=== PATIENT | female | born 1950 | race Caucasian/White ===

== ENCOUNTER → 2020-09-11 | Outpatient (CLI) | payer MEDICARE, OTHER ==
--- NOTE | 2020-09-11 16:55 | MR ---
EXAMINATION TYPE: MR lumbar spine wo con DATE OF EXAM: 09/11/2020 COMPARISON: None HISTORY: Lumbago, Low back pain into rt side TECHNIQUE: Multiplanar, multisequence images of the lumbar spine were acquired. L1-L2: Normal disc appearance without desiccation. No herniation, protrusion or disc bulging. No ca nal stenosis is present. Foramina are patent bilaterally. L2-L3: Mild posterior disc bulge effaces the anterior thecal sac. There is mild facet arthropathy. No significant spinal stenosis or foraminal encroachment. L3-L4: Posterior disc bulge causes mild anterior mass effect on the thecal sac. There is facet arthro josefa with hypertrophy ligamentum flavum. No significant spinal stenosis or foraminal encroachment. L4-L5: There is a trefoil appearance of the thecal sac due to the hypertrophic changes of the facets, posterior disc bulge causes anterior mass effect on the thecal sac. Circumferential extension of dis c material encroaches minimally on the inferior aspect of the foramina. L5-S1: There is facet arthropathy change with hypertrophy ligamentum flavum. Posterior disc bulge eff aces the anterior thecal sac and possibly contact the proximal S1 nerve roots. Circumference extensio n endplate disc complex results in some foraminal encroachment bilaterally. Lumbar segments are intact. No paraspinal masses are identified. Conus medullaris has a normal appe arance. Mild anterolisthesis grade 1 L4-5, retrolisthesis grade 1 L5-S1. There is loss of disc height signal at intervertebral levels. Multilevel spondylosis with endplate discogenic marrow signal bourne es present. IMPRESSION: Degenerative disc disease and facet arthropathy. Foraminal encroachment and findings at L4-5 as descr ibed.
== END | disposition home or self-care (01) ==
LOC: RADMRIMAIN 07:29
PROVIDERS: ATTEND Psychiatry & Neurology Neurology
DX: M51.36 Other intervertebral disc degeneration, lumbar region (principal); M43.17 Spondylolisthesis, lumbosacral region; M47.816 Spondylosis without myelopathy or radiculopathy, lumbar region; M99.73 Connective tissue and disc stenosis of intervertebral foramina of lumbar region
CPT/HCPCS: 72148

== ENCOUNTER 2021-04-28 11:35 | Day surgery (SDC) | payer MEDICARE ==
[2021-04-27 13:40] VITALS: BMI 32.6
[2021-04-28 12:00] VITALS: RESP 16; TEMP 97.8
[2021-04-28 12:08] LABS: Glucose,Whole Blood 130 mg/dL (75-99)
[2021-04-28] MEDS ORDERED: LACTATED RINGERS 1,000 ML IV ONE (12:08)
[2021-04-28] MEDS ORDERED: MIDAZOLAM 2 MG/2 ML VIAL ONE (12:36)
[2021-04-28] MEDS ORDERED: fentaNYL (PF) 50 MCG/ML 2 ML AMP ONE (12:36)
[2021-04-28] MEDS ORDERED: methylPREDNISolone ACETATE 40 MG/ML 1 ML VIAL ONE (12:36)
[2021-04-28] MEDS ORDERED: IOPAMIDOL M200 10 ML VIAL ONE (12:36)
[2021-04-28] MEDS ORDERED: LACTATED RINGERS 1,000 ML IV SCH (12:45)
--- NOTE | 2021-04-28 13:00 | P.PCN ---
Date of Procedure: 04/28/21 Description of Procedure: Procedure: 1. L4-L5 Epidural steroid injection under fluoroscopic guidance # 03/02 , 2. Lumbar epidurogram PREOPERATIVE DIAGNOSIS: Lumbar degenerative disc disease, and Lumbar radiculopathy. POSTOPERATIVE DIAGNOSIS: Lumbar degenerative disc disease, and Lumbar radiculopathy. SURGEON: Enriqueta Laguna ANESTHESIA: Local with 1% lidocaine, and IV sedation : Versed 1 mg, and fentanyl 50 g EBL: None. Specimen removed: None Fluoroscopic image: saved to electronic medical records PROCEDURE INDICATION: The patient had history of Lumbar degenerative disc disease and Lumbar radiculopathy. Failed to conservative therapy. Presented for epidural steroid injection. PROCEDURE DESCRIPTION: The patient was seen and identified in the preoperative area. Risks, benefits, complications, and alternatives were discussed with the patient. The patient agreed to proceed with the procedure and signed the consent. IV was started, and vital signs were stable. Patient was taken to the procedure area, and time out was completed. The patient was placed in the prone position on procedure table and a pillow was placed under the abdomen to reduce lumbar lordosis. The lumbosacral area was prepped and draped in the usual sterile fashion. Critical pause was taken. Vital signs were closely monitored during the procedure. Using anterior-posterior fluoroscopy, the L4-L5 interlaminar space was identified, and skin and deeper tissues were localized with 1% lidocaine. Using anterior-posterior fluoroscopy, lateral fluoroscopy, and [id number] technique, a18 gauge 3.5 Tuohy epidural needle entered the epidural space. After negative aspiration of CSF and blood with no paresthesias, 2 ml of [id number] contrast dye was injected and an excellent epidurogram was seen. Again after negative aspiration of CSF and blood with no paresthesias, 8 mL of block solut ion was injected into the epidural space. Block solution contained 40 mg of Depo-Medrol, and 7 mL of preservative-free normal saline. Needle was withdrawn intact, skin was cleansed, and bandages were applied. COMPLICATIONS: None. DISPOSITION / PLANS: The patient was placed in a supine position and transferred to the recovery area in a stable condition for observation. Patient was discharged from the recovery room after meeting discharge criteria. Home discharge instructions given to the patient by the staff. The patient was reexamined prior to discharge. The patient will schedule a follow up in the clinic in 4 weeks.
[2021-04-28] MEDS ORDERED: IV FLUID CONTINUATION 600 ML IV ONE (13:04)
--- NOTE | 2021-04-28 13:13 | FL ---
EXAMINATION TYPE: FL guided pain mgmt statistic DATE OF EXAM: 04/28/2021 CLINICAL HISTORY: Low back pain. TECHNIQUE: Fluoroscopy. COMPARISON: None. FINDINGS: Fluoroscopic guidance was provided during pain relief procedure performed by Dr. Laguna . A total of 34 seconds of fluoroscopic time was utilized during the procedure and two spot images ar e acquired. Images acquired shows needle localization at L4-L5 level from posterior approach. IMPRESSION: As Above.
[2021-04-28 13:47] VITALS: BP 123/69; PULSE 69
== END 2021-04-28 13:55 | disposition home or self-care (01) ==
LOC: ORPAIN 11:35
DX: M51.36 Other intervertebral disc degeneration, lumbar region (principal); M54.16 Radiculopathy, lumbar region
CPT/HCPCS: 62323; J2250; J1030; J3010; Q9966

== ENCOUNTER → 2021-05-14 | Outpatient (CLI) | payer MEDICARE ==
[2021-05-14 12:48] VITALS: BP 133/81; PULSE 76; RESP 18; TEMP 98.4
--- NOTE | 2021-05-14 13:03 | P.CON ---
Consult Note - . Consult date: 05/14/21 Assessment/Plan:: HISTORY OF PRESENT ILLNESS: 71 yr old female as a referral from Dr. Van presents today with lower back pain secondary to anterolisthesis, retrolisthesis, spondylosis, DDD and facet arthropathy for evaluation status post LESI L4-L5 #1. Patient states she expires 100% pain relief status post procedure. She admits she is able to climb steps, overhead reach when doing dishes and carrying laundry baskets with more ease. Pain level is currently 0 out of 10 in intensity and denies any radiation of pain, tingling, or numbness. Patient admits to having LESI L4-L5 1 prior time in 2003. Pain is alleviated with medications, injections, physical therapy which she completed 02/17, home stretching regimen, use of a reclining massage chair and rest. PMH: HTN, DM II PSH: L Hip Replacement, R Shoulder Surgery, Hysterectomy, Cholycystectomy, C- section x 2. SH: Negative x 3. FH: HTN All: NKDA Meds: See list REVIEW OF ORGAN SYSTEMS: CONSTITUTIONAL: No fevers or chills. No recent weight loss. HEENT: No visual acuity loss, eye pain, difficulties with hearing. No nosebleeds. No difficulty swallowing. RESPIRATORY: Denies any troubles with breathing or dyspnea on exertion. CARDIOVASCULAR: Denies any chest pain, palpitations, or recent heart attacks. GASTROINTESTINAL: Denies fatty food intolerance. Has change in bowel habits and gas bloat. GENITOURINARY: Denies any blood in urine. Has increased urinary frequency. NEUROLOGICAL: + numbness and tingling along the distal extremities. No seizure disorders or headaches. MUSCULOSKELETAL: + back pain SKIN: No skin cancer. No rash. PSYCHIATRIC: Denies current depression or suicidal thoughts. ENDOCRINE: Denies current thyroid disorders. Denies any blood sugar glucose intolerance. HEME/LYMPHATIC: Denies any lumps and bumps around the neck. History of deep venous thrombosis. ALLERGY/IMMUNOLOGY: No immunoglobulin therapy. No immune deficiencies. BREAST: Denies current breast lumps, pain or nipple discharge. Physical Examinations : Constitutional : Cooperative , not in acute distress . HEENT: Neck supple. No Lymphadenopathy. Normal thyroid size . Eyes no ptosis , no icterus, no photophobia . Hearing intact. Normal oropharynx. No Thrush. Respiratory : Chest clear to auscultations bilaterally. No wheezing. No rhonchi. Cardiovascular : Regular rate and rhythm , S1 / S2. No S3 . No S4. Gastrointestinal : Abdomen soft. No tenderness. Bowel sounds x 4. No organomegaly . Genitourinary : Deferred. Neurologic : Cranial nerve II to XII intact. No focal neurological deficits. Psychiatric : alert & oriented x 3. Matching mood & appropriate affect. Judgment & insight intact. Lymphatic No Lymphadenopathy. Musculoskeletal : Cervical Spine Motor strength in the deltoid and biceps: Normal right side. Normal Left side Motor strength biceps and the wrist extensors: Normal right side . Normal left side Motor strength in the triceps muscle: Normal right side. Normal left side Deep tendon reflexes: Normal at the biceps. Normal at Brachioradialis. Normal at triceps Cervical facet loading test: positive bilaterally Spurling test: positive bilaterally Neck distraction test: positive bilaterally Dante sign: positive bilaterally Lumbar spine Motor strength lower extremities ,thigh and legs 5/5 Right side , 5/5 Left side Deep tendon reflexes : Normal Knee Jerk. Normal Ankle Jerk Vertebral body tenderness over L5 with deep palpation Lumbar facet Loading Test: positive Right / positive Left Range of motion of the lumbar spine Flexion 30 degrees, extension 10 degrees Straight Leg Raise test: Left/ Right p ositive at degree Waqas test: positive right / positive left. Severe tenderness over the Sacroiliac joint on the Right / Left sides Gaenslen test: positive bilaterally Seated flexion test: positive bilaterally. Imaging: MANFRED of the Lumbar spine without contrast from 09/11/20 reviewed. Assessment/ Plan : Lumbar DDD, spondylosis, facet arthropathy. Pt admits to sufficient and substantial pain relief till this day s/p procedure. Pt may return to our clinic on an as-needed basis. All questions answered. I have spent greater than 50 minutes on patient care today. Dr Kelley was available by phone for the evaluation of this patient. The time was used to review the medical records including relevant urine studies and Prescription history (MAPs), review of the available imaging, evaluation and examination of the patient, coordination of care with the medical staff and if applicable referring physicians, as well as creation of the medical record PQRS Measure Charge Sheet Mode of Arrival: Ambulatory PQRS Narrative: Blood Pressure 133/81 Scale Used Numeric (1 - 10) Hx Alcohol Use (MH) No Home Medications: Ambulatory Orders Atorvastatin [Lipitor] 80 mg PO DAILY 04/27/21 Candesartan/Hydrochlorothiazid [Candesartan/Hydrochlorothiazid 32-12.5 mg] 1 each PO DAILY 04/27/21 Esomeprazole Magnesium [NexIUM] 40 mg PO DAILY 04/27/21 Ibuprofen [Motrin] 800 mg PO BID PRN 04/27/21 Meloxicam [Mobic] 15 mg PO DAILY 04/27/21 Sertraline [Zoloft] 100 mg PO BID 04/27/21 amLODIPine BESYLATE 10 mg PO DAILY 04/27/21 buPROPion XL [Wellbutrin XL] 300 mg PO DAILY 04/27/21 sitaGLIPtin PHOS/metFORMIN HCL [Janumet 50-500 mg Tablet] 1 each PO BID 04/27/21
== END ==
LOC: PNWHC3 12:16
PROVIDERS: ATTEND Specialist
DX: M51.36 Other intervertebral disc degeneration, lumbar region (principal); M47.816 Spondylosis without myelopathy or radiculopathy, lumbar region; I10 Essential (primary) hypertension; E11.9 Type 2 diabetes mellitus without complications; Z79.84 Long term (current) use of oral hypoglycemic drugs; Z79.899 Other long term (current) drug therapy
CPT/HCPCS: 99211

== ENCOUNTER → 2021-07-22 | Outpatient (CLI) | payer MEDICARE ==
--- NOTE | 2021-07-22 09:24 | P.PN ---
Subjective Progress Note Date: 07/22/21 Principal diagnosis: A 71 yr old female with a history of severe and chronic low back pain secondary to lumbar degenerative disc diseases and lumbar spondylosis with facet arthropathy presents today for evaluation s/p LESI L4-L5 #1. She states she experienced 100% pain relief for 2 months status post procedure. Pain level is currently at 8 out of 10 in intensity, constant, achy in the lower aspects of her lumbar spine with occasional sharp pain with movement, twisting, bending and lifting. Pain is alleviated with medications (Motrin 800 mg, Tylenol OTC), injections, repositioning, physical therapy for 10 weeks in January 2021 and rest. Interventional pain procedures completed include LESI L4-L5 x1 Patient is currently on Motrin 800 mg, Tylenol OTC. Patient denies any side effects of the medication(s), denies excessive drowsiness or sleepiness, denies suicidal ideation and reports that the current pain medication is helping to control the pain and improve activities of daily living. Patient denies any motor or sensory deficits. Patient denies any fever or night sweats, denies any change in the bowel movements or urination. Physical Examination: -Constitutional: Cooperative. Not in acute distress . -HEENT: Neck is supple. No lymphadenopathy. No thyromegaly. Normal thyroid size. Eyes: No ptosis , no icterus, no photophobia. ENT: No auditory deficits. Normal oropharynx. No Thrush. - Respiratory: Chest clear to auscultations bilaterally. No wheezing. No rhonchi. - Cardiovascular: Regular rate and rhythm. S1 / S2 , no S3 , no S4. - Gastrointestinal: Abdomen soft no tenderness. Bowel sounds positive in all four quadrants. No organomegaly. - Genitourinary: Deferred. - Neurologic: Cranial nerve II to XII intact. No focal neurological deficits. - Psychatric: Alert & oriented x 3. Matching mood & appropriate affect. Judgment and insight intact. - Lymphatic: No Lymphadenopathy. - Musculoskeletal: Cervical spine: Muscle bulk/ tone/ strength in the bilateral upper extremities normal Vertebral body tenderness to palpation over Facet loading test positive Thoracic spine Muscle bulk / tone/ strength in the bilateral paraspinal muscles normal Vertebral body tender to palpation over Facet loading test positive Lumbar spine: Motor bulk/ tone/ strength lower extremities , thigh and legs : 5/5 Deep tendon reflexes : Normal Knee Jerk. Normal Ankle Jerk . Vertebral body tenderness to palpation over L4 Lumbar Facet Loading Test positive Straight Leg Raise: positive at 30 degrees right side< left side Gaenslen's Test positive Sacral spine : Severe tenderness over the Sacroiliac joint: right side / left side Range of motion: Flexion of the lumbar spine <60 degrees Range of motion: Extension of the lumbar spine <20 degrees Gaenslen's Test positive Jero's Test positive Waqas test: positive right side / left side Thigh Thrust Test Sacral Thrust Test Assessment and plan: Chronic low back pain secondary to lumbar degenerative disc disease , lumbar spondylosis with facet arthropathy without myelopathy Recommendation of LESI L4-L5 #2. Risks, benefits of procedure discussed and pt verbalized understanding. Denies anticoagulant use or medical history of diabetes. Denies anticoagulant use. Admits to medical history of diabetes. Protocol for discontinuation/continuation of medications enrrique procedure discussed. All patient questions answered MAPS reviewed and it was appropriate. I have spent 31 minutes on patient care today. Dr Kelley was available by phone for the evaluation of this patient. The time was used to review the medical records including relevant urine studies and Prescription history (MAPs), review of the available imaging, evaluation and examination of the patient, coordination of care with the medical staff and if applicable referring physicians, as well as creation of the medical record PQRS Measure Charge Sheet PQRS Narrative: Hx Alcohol Use (MH) No Home Medications: Ambulatory Orders Atorvastatin [Lipitor] 80 mg PO DAILY 04/27/21 Candesartan/Hydrochlorothiazid [Candesartan/Hydrochlorothiazid 32-12.5 mg] 1 each PO DAILY 04/27/21 Esomeprazole Magnesium [NexIUM] 40 mg PO DAILY 04/27/21 Ibuprofen [Motrin] 800 mg PO BID PRN 04/27/21 Meloxicam [Mobic] 15 mg PO DAILY 04/27/21 Sertraline [Zoloft] 100 mg PO BID 04/27/21 amLODIPine BESYLATE 10 mg PO DAILY 04/27/21 buPROPion XL [Wellbutrin XL] 300 mg PO DAILY 04/27/21 sitaGLIPtin PHOS/metFORMIN HCL [Janumet 50-500 mg Tablet] 1 each PO BID 04/27/21
[2021-07-22 09:31] VITALS: BP 140/65; PULSE 88; RESP 16
== END ==
LOC: PNWHC3 09:04
PROVIDERS: ATTEND Specialist
DX: M51.36 Other intervertebral disc degeneration, lumbar region (principal); M47.816 Spondylosis without myelopathy or radiculopathy, lumbar region; G89.29 Other chronic pain; E11.9 Type 2 diabetes mellitus without complications; Z79.84 Long term (current) use of oral hypoglycemic drugs
CPT/HCPCS: 99211

== ENCOUNTER → 2021-09-01 | Day surgery (SDC) | payer MEDICARE ==
[2021-08-27 11:58] VITALS: BMI 32.6
[~2021-09-01] MED LIST: IOPAMIDOL M200 10 ML VIAL ONE; IV FLUID CONTINUATION 750 ML IV ONE; LACTATED RINGERS 1,000 ML IV SCH; LIDOCAINE 2% INJ 20 MG/ML (2 ML VIAL) ONE; MIDAZOLAM 2 MG/2 ML VIAL ONE; ROPIVACAINE 5MG/ML 20ML VIAL ONE; fentaNYL (PF) 50 MCG/ML 2 ML AMP ONE
[2021-09-01 08:44] VITALS: TEMP 97.3
[2021-09-01 08:52] LABS: Glucose,Whole Blood 113 mg/dL (70-110)
--- NOTE | 2021-09-01 09:15 | P.PCN ---
Date of Procedure: 09/01/21 Surgeon: Saw Husain Pathology: none sent Condition: stable Disposition: PACU Description of Procedure: REOPERATIVE DIAGNOSIS: 1-Lumbar radiculopathy 2- Lumber Degenerative Disc Diseases. POSTOPERATIVE DIAGNOSIS: 1-Lumbar radiculopathy. 2-Lumbar Degenerative Disc Diseases PROCEDURE 1. Lumbar epidural steroid injection under fluoroscopic guidance at the L5-S1 level in the right paramedian approach. 2. Lumbar epidurogram. ANESTHESIA: Local with 1% lidocaine; and IV moderate conscious sedation with Versed and fentanyl EBL: Minimal PROCEDURE INDICATION: The patient with low back pain and radiculitis symptoms unresponsive to conservative treatment. Fluoroscopy was used to optimize visualization of the needle placement and to maximize safety. PROCEDURE DESCRIPTION / TECHNIQUE: The patient was seen and identified in the preoperative area. Risks, benefits, complications including but not limited to infections ,bleeding ,allergic reaction to the medications ,nerve damage and not complete pain relief , and alternatives were discussed with the patient. The patient agreed to proceed with the procedure and signed the consent. IV was started, and vital signs were stable. Patient was taken to the OR and time out was completed. The patient was placed in the prone position on procedure table and a pillow was placed under the abdomen to reduce lumbar lordosis. The lumbosacral area was prepped and draped in the usual sterile fashion with ChloraPrep.Patient was closely monitored during the procedure. Conscious sedation was used during the procedure to decrease patients anxiety. Vital signs were monitered during the entire procedure. Using anterior-posterior fluoroscopy, the L5-S1 interlaminar space was identified and the skin over this site was marked and then infiltrated with 1% lidocaine subcutaneously. Subsequently, a 18-gauge 5 inch Tuohy epidural needle was inserted and advanced toward the epidural space using the Loss of resistance to air technique and guided by AP and lateral fluoroscopy. The epidural space was found at about 9 cm from skin. The correct needle position in the epidural space was verified with the injection of 1 mL of the water soluble contrast dye Omnipaque 180 contrast and observing an excellent epidurogram with the epidural spread of the dye, after negative aspiration for blood and CSF and in the absence of paresthesias. Again after negative aspiration, a 8 ml mixture containing 40 mg of Kenalog and 5 ml of preservative free Normal Saline, and 2 ml of preservative free Ropivacaine 0.5% solution was injected and a washout of epidurogram was seen. Needle was withdrawn intact, skin was cleansed, and bandages were applied. patient tolerated procedure well and was transferred to PACU in stable condition.A copy of the needle placement picture was saved to the fluoroscopy machine. COMPLICATIONS: None
[2021-09-01 09:33] VITALS: RESP 16
[2021-09-01 09:42] VITALS: BP 145/75; PULSE 68
--- NOTE | 2021-09-01 10:17 | FL ---
Fluoroscopy HISTORY: Pain 14 seconds fluoroscopy time supplied to the referring clinician. 1 intraoperative C-arm images docum ent the procedure. See dictated report from anesthesia.
== END ==
LOC: ORPAIN 08:27
PROVIDERS: ATTEND Anesthesiology
DX: M51.16 Intervertebral disc disorders with radiculopathy, lumbar region (principal)
CPT/HCPCS: 62323; J2250; J3010; Q9966; J2795; J2001; 99152

== ENCOUNTER → 2021-09-17 | Outpatient (CLI) | payer MEDICARE ==
[2021-09-17 11:22] VITALS: BP 123/78; PULSE 82; RESP 18
--- NOTE | 2021-09-17 11:22 | P.PAINPG ---
PQRS Measure Charge Sheet Comment: A 71 yr old female with a history of severe and chronic low back pain secondary to lumbar degenerative disc diseases and lumbar spondylosis with facet arthropathy presents today for evaluation status post LESI L5-S1 #1. She states she experienced 100% pain relief x 3 weeks status post procedure. Pain level is currently at 0/10 intensity, but provoked as high as 2/10 by twisting or lifting. Pain is alleviated with medications (Tylenol, Motrin), topicals, ice, heat, stretching and rest. Interventional pain procedures completed include LESI L5-S1 x 1 Patient is currently on Tylenol, Motrin prn Patient denies any side effects of the medication(s), denies excessive drowsiness or sleepiness, denies suicidal ideation and reports that the current pain medication is helping to control the pain and improve activities of daily living. Patient denies any motor or sensory deficits. Patient denies any fever or night sweats, denies any change in the bowel movements or urination. Physical Examination: -Constitutional: Cooperative. Not in acute distress . - Neurologic: Cranial nerve II to XII intact. No focal neurological deficits. - Psychatric: Alert & oriented x 3. Matching mood & appropriate affect. Judgment and insight intact. - Musculoskeletal: Cervical spine: Muscle bulk/ tone/ strength in the bilateral upper extremities normal Vertebral body tenderness to palpation over Spurling test positive Distraction test positive Facet loading test positive Thoracic spine Muscle bulk / tone/ strength in the bilateral paraspinal muscles normal Vertebral body tender to palpation over Facet loading test positive Lumbar spine: Motor bulk/ tone/ strength lower extremities , thigh and legs : 5/5 Deep tendon reflexes : Normal Knee Jerk. Normal Ankle Jerk . Vertebral body tenderness to palpation over L5 w deep palpation Lumbar Facet Loading Test positive Straight Leg Raise: positive at 30 degrees right side/ left side Gaenslen's Test positive Sacral spine : Severe tenderness over the Sacroiliac joint: right side / left side Range of motion: Flexion of the lumbar spine <60 degrees Range of motion: Extension of the lumbar spine <20 degrees Gaenslen's Test positive Jero's Test positive Waqas test: positive right side / left side Thigh Thrust Test Sacral Thrust Test Assessment and plan: Chronic low back pain secondary to lumbar degenerative disc disease , lumbar spondylosis with facet arthropathy without myelopathy Pt received sufficient and optimal pain relief status post procedure. She will continue following her home pain management modalities in the interim and may return to our clinic on an as-needed basis. Risks, benefits of procedure discussed and pt verbalized understanding. Denies anticoagulant use or medical history of diabetes. All patient questions answered MAPS reviewed and it was appropriate. I have spent less than 30 minutes on patient care today. Dr Kelley was available by phone for the evaluation of this patient. The time was used to review the medical records including relevant urine studies and Prescription history (MAPs), review of the available imaging, evaluation and examination of the patient, coordination of care with the medical staff and if applicable referring physicians, as well as creation of the medical record PQRS Narrative: Hx Alcohol Use (MH) No Home Medications: Ambulatory Orders Atorvastatin [Lipitor] 80 mg PO DAILY 04/27/21 Candesartan/Hydrochlorothiazid [Candesartan/Hydrochlorothiazid 32-12.5 mg] 1 each PO DAILY 04/27/21 Esomeprazole Magnesium [NexIUM] 40 mg PO DAILY 04/27/21 Ibuprofen [Motrin] 800 mg PO BID PRN 04/27/21 Meloxicam [Mobic] 15 mg PO DAILY 04/27/21 Sertraline [Zoloft] 100 mg PO BID 04/27/21 amLODIPine BESYLATE 10 mg PO DAILY 04/27/21 buPROPion XL [Wellbutrin XL] 300 mg PO DAILY 04/27/21 sitaGLIPtin PHOS/metFORMIN HCL [Janumet 50-500 mg Tablet] 1 each PO BID 04/27/21 Controlled Substance Measures - Controlled Substance Measures Is patient prescribed a controlled substance at discharge?: No
== END ==
LOC: PNWHC3 10:26
PROVIDERS: ATTEND Specialist
DX: M51.36 Other intervertebral disc degeneration, lumbar region (principal); M47.816 Spondylosis without myelopathy or radiculopathy, lumbar region; G89.29 Other chronic pain
CPT/HCPCS: 99211

== ENCOUNTER → 2022-09-30 | Day surgery (SDC) | payer MEDICARE ==
[2022-09-28 11:08] VITALS: BMI 32.5
[~2022-09-30] MED LIST changes: -IV FLUID CONTINUATION 750 ML IV ONE; -LACTATED RINGERS 1,000 ML IV SCH; -LIDOCAINE 2% INJ 20 MG/ML (2 ML VIAL) ONE; -MIDAZOLAM 2 MG/2 ML VIAL ONE; -ROPIVACAINE 5MG/ML 20ML VIAL ONE; -fentaNYL (PF) 50 MCG/ML 2 ML AMP ONE; +methylPREDNISolone ACETATE 40 MG/ML 1 ML VIAL ONE
[2022-09-30 12:16] LABS: Glucose,Whole Blood 108 mg/dL (70-110)
[2022-09-30 12:17] VITALS: TEMP 96.9
--- NOTE | 2022-09-30 12:42 | P.PCN ---
Date of Procedure: 09/30/22 Procedure(s) Performed: PREOPERATIVE DIAGNOSIS: 1- Lumbar Degenerative Disc Diseases 2-Lumbar spondylosis with Facet arthropathy without myelopathy. POSTOPERATIVE DIAGNOSIS: 1-lumbar degenerative disc disease. 2-lumbar spondylosis with facet arthropathy without myelopathy. PROCEDURE 1. Lumbar epidural steroid injection under fluoroscopic guidance at the L4-5 level. (Fluoroscopy imaging was available in radiology department) 2. Lumbar epidurogram. ANESTHESIA: Lidocaine 1% 3 and then only. EBL: Minimal PROCEDURE INDICATION: The patient with low back pain and radiculitis symptoms unresponsive to conservative treatment. Fluoroscopy was used to optimize visualization of the needle placement and to maximize safety. PROCEDURE DESCRIPTION / TECHNIQUE: The patient was seen and identified in the preoperative area. Risks, benefits, complications including but not limited to infections ,bleeding ,allergic reaction to the medications ,nerve damage and not complete pain releife , and alternatives were discussed with the patient. The patient agreed to proceed with the procedure and signed the consent, and vital signs were stable. Patient was taken to the OR and time out was completed. The patient was placed in the prone position on procedure table and a pillow was placed under the abdomen to reduce lumbar lordosis. The lumbosacral area was prepped and draped in the usual sterile fashion.ere closely monitored during the procedure. Vital signs was monitered during the entire procedure. Using anterior-posterior fluoroscopy, the L4-5 interlaminar space was identified and the skin over this site was marked and then infiltrated with 1% lidocaine subcutaneously. Subsequently, a 20-gauge Tuohy epidural needle was inserted and advanced toward the epidural space using the ``Loss of resistance technique and guided by AP and lateral fluoroscopy. The correct needle position in the epidural space was verified with the injection of 2 mL of the water soluble contrast dye Isovue 200 contrast and observing an excellent epidurogram with the epidural spread of the dye, after negative aspiration for blood and CSF and in the absence of paresthesias. Again after negative aspiration, a 6 ml mixture containing 40 mg of Depo-medrol ( Preservetive Free ), and 2 ml of preservative free Normal Saline, and 2 ml of preservative free lidocaine 1% solution was injected and a washout of epidurogram was seen. Needle was withdrawn intact, skin was cleansed, and bandages were applied. COMPLICATIONS: None DISPOSITION / PLANS: The patient was placed in a supine position and transferred to the recovery area in a stable condition for observation. There was no evid ence of lower extremity motor or sensory deficit after the procedure. Patient was discharged from the recovery room after meeting discharge criteria. Home discharge instructions were given to the patient by the staff. The patient was reexamined prior to discharge. The patient will schedule a follow up in the clinic in 2-4 weeks.
[2022-09-30 12:48] VITALS: BP 122/78; PULSE 77; RESP 16
--- NOTE | 2022-09-30 15:00 | FL ---
EXAMINATION TYPE: FL guided pain mgmt statistic DATE OF EXAM: 09/30/2022 FLUOROSCOPY Fluoroscopy time of 8 seconds was used during lumbar epidural steroid injection. 1 image/s document/ s the procedure. Total DAP: 0.83892 mGym2
== END ==
LOC: ORPAIN 11:48
PROVIDERS: ATTEND Specialist
DX: M51.16 Intervertebral disc disorders with radiculopathy, lumbar region (principal); M47.26 Other spondylosis with radiculopathy, lumbar region
CPT/HCPCS: 62323; J1030; Q9966

== ENCOUNTER → 2022-10-25 | Outpatient (CLI) | payer MEDICARE ==
[2022-10-25 12:29] VITALS: BP 107/72; PULSE 85; RESP 15; TEMP 98.2
--- NOTE | 2022-10-25 14:19 | P.PAINPG ---
PQRS Measure Charge Sheet Comment: A 71 yr old female with a history of severe and chronic low back pain secondary to lumbar degenerative disc diseases and lumbar spondylosis with facet arthropathy presents today for evaluation s/p LAKIA L4-L5 #2. Pt states she experienced 100% pain relief x 3 wks s/p procedure. Pain level is provoked as high as 8/10 by twisting or lifting, localized in the R knee, achy in character without radiation. It started 1 mo ago when she pivoted while standing, instantly feeling a sharp R medial knee pain and accompanied by a "pop" sound. Pain is alleviated with injections, medications (Tylenol, Motrin), topicals, ice, heat, stretching and rest. Oswestry axial pain score of 11. Interventional pain procedures completed include LESI L4-L5 x2, L5-S1 x 1 Patient is currently on Tylenol, Motrin prn Patient denies any side effects of the medication(s), denies excessive drowsiness or sleepiness, denies suicidal ideation and reports that the current pain medication is helping to control the pain and improve activities of daily living. Patient denies any motor or sensory deficits. Patient denies any fever or night sweats, denies any change in the bowel movements or urination. Physical Examination: -Constitutional: Cooperative. Not in acute distress . - Neurologic: Cranial nerve II to XII intact. No focal neurological deficits. - Psychatric: Alert & oriented x 3. Matching mood & appropriate affect. Judgment and insight intact. - Musculoskeletal: Cervical spine: Muscle bulk/ tone/ strength in the bilateral upper extremities normal Vertebral body tenderness to palpation over Spurling test positive Distraction test positive Facet loading test positive Thoracic spine Muscle bulk / tone/ strength in the bilateral paraspinal muscles normal Vertebral body tender to palpation over Facet loading test positive Lumbar spine: R medial joint point TTP Motor bulk/ tone/ strength lower extremities , thigh and legs : 5/5 Deep tendon reflexes : Normal Knee Jerk. Normal Ankle Jerk . Vertebral body tenderness to palpation Lumbar Facet Loading Test positive Straight Leg Raise: positive at 30 degrees right side/ left side Gaenslen's Test positive Sacral spine : Severe tenderness over the Sacroiliac joint: right side / left side Range of motion: Flexion of the lumbar spine <60 degrees Range of motion: Extension of the lumbar spine <20 degrees Gaenslen's Test positive Waqas test: positive right side / left side Thigh Thrust Test Sacral Thrust Test Assessment and plan: Chronic R Knee Pain secondary to sprain Recommendation of x ray of the R knee Dx: S83.91XA. May need a series of injections for optimal pain relief. Risks, benefits of procedure discussed and pt verbalized understanding. Denies anticoagulant use or medical history of diabetes. All patient questions answered I have spent less than 30 minutes on patient care today. Dr Kelley was available by phone for the evaluation of this patient. The time was used to review the medical records including relevant urine studies and Prescription history (MAPs), review of the available imaging, evaluation and examination of the patient, coordination of care with the medical staff and if applicable referring physicians, as well as creation of the medical record PQRS Narrative: Hx Alcohol Use (MH) No Home Medications: Ambulatory Orders Atorvastatin [Lipitor] 80 mg PO DAILY 04/27/21 Candesartan/Hydrochlorothiazid [Candesartan/Hydrochlorothiazid 32-12.5 mg] 1 each PO DAILY 04/27/21 Esomeprazole Magnesium [NexIUM] 40 mg PO DAILY 04/27/21 Ibuprofen [Motrin] 800 mg PO BID PRN 04/27/21 Meloxicam [Mobic] 15 mg PO DAILY 04/27/21 Sertraline [Zoloft] 100 mg PO BID 04/27/21 amLODIPine BESYLATE 10 mg PO DAILY 04/27/21 buPROPion XL [Wellbutrin XL] 300 mg PO DAILY 04/27/21 sitaGLIPtin PHOS/metFORMIN HCL [Janumet 50-500 mg Tablet] 1 each PO BID 04/27/21 Glucosam/Lamberto-Msm1/C/Anup/Bosw [Glucosamine-Chondroitin Tablet] 1 each PO DAILY 09/28/22 Iron(Unknown Dose) 1 tab PO DAILY 09/28/22 Vitamin B-12 (Unknown Dose) 1 tab PO DAILY 09/28/22 Vitamin C (Unknown Dose) 1 tab PO DAILY 09/28/22 Vitamin D (Unknown Dose) 1 tab PO DAILY 09/28/22 Vitamin E (Unknown Dose) 1 tab PO DAILY 09/28/22 Controlled Substance Measures - Controlled Substance Measures Is patient prescribed a controlled substance at discharge?: No
== END ==
LOC: PNWHC3 11:52
PROVIDERS: ATTEND Specialist
DX: G89.29 Other chronic pain (principal); S83.91XA Sprain of unspecified site of right knee, initial encounter; Z91.048 Other nonmedicinal substance allergy status; X58.XXXA Exposure to other specified factors, initial encounter
CPT/HCPCS: 99211

== ENCOUNTER → 2022-10-25 | Outpatient (CLI) | payer MEDICARE ==
--- NOTE | 2022-10-25 13:02 | XR ---
EXAMINATION TYPE: XR knee limited RT DATE OF EXAM: 10/25/2022 12:52 PM INDICATION: Patient age:Female; 72 years old; Reason for study: S83.91XA; PHH. COMPARISON: None. TECHNIQUE: The Right knee(s) was examined in Frontal, lateral and oblique projections. FINDINGS: No evidence of any acute osseous pathology, soft tissue swelling, or joint effusion is no marcelle. Tricompartmental osteophyte formation involving the femoral condyles, tibial plateau and patella. Mo derate medial knee joint space narrowing. IMPRESSION: 1. No acute osseous pathology. 2. Large severe tricompartmental osteoarthritic changes.
== END | disposition home or self-care (01) ==
LOC: RADXRMAIN 12:35
PROVIDERS: ATTEND Physician Assistant Medical
DX: S83.91XA Sprain of unspecified site of right knee, initial encounter (principal); M17.11 Unilateral primary osteoarthritis, right knee

== ENCOUNTER → 2022-12-02 | Outpatient (CLI) | payer MEDICARE ==
--- NOTE | 2022-12-02 13:41 | CT ---
EXAMINATION TYPE: CT knee RT wo con DATE OF EXAM: 12/02/2022 COMPARISON: Plain film radiographs dated 10/25/2022 HISTORY: Sprain of unspecified site of right knee CT DLP: 407.60 mGycm Automated exposure control for dose reduction was used. Unenhanced CT of the right knee was performed in the axial, coronal and sagittal planes. Bone and soft tissue window settings are submitted. FINDINGS: There is no evidence for acute fracture or dislocation. There is no evidence for soft tissue edema or joint effusion. No soft tissue mass is present. Moderate degenerative narrowing involving the medial tibiofemoral joint space and patellofemoral femoral joint space. Tricompartment osteophyte formation noted involving the margins of the femoral condyles, intercondylar regions, margins of the tibial pl ateau and superior and inferior patellar poles. IMPRESSION: CHANGES OF OSTEOARTHRITIS. NO FRACTURE SEEN.
== END | disposition home or self-care (01) ==
LOC: RADCTMAIN 13:15
PROVIDERS: ATTEND Specialist
DX: S83.91XA Sprain of unspecified site of right knee, initial encounter (principal); M54.16 Radiculopathy, lumbar region; M19.90 Unspecified osteoarthritis, unspecified site; X58.XXXA Exposure to other specified factors, initial encounter

== ENCOUNTER → 2022-12-22 | Outpatient (CLI) | payer MEDICARE ==
[2022-12-22 15:14] VITALS: BP 147/82; PULSE 74; RESP 15; TEMP 98.4
--- NOTE | 2022-12-22 16:09 | P.PAINPG ---
Objective - Vital Signs Vital signs: Intake & Output 12/21/22 12/22/22 12/22/22 18:59 06:59 18:59 Weight 186 kg PQRS Measure Charge Sheet Comment: A 72 yr old female with a history of severe and chronic low back pain secondary to lumbar degenerative disc diseases and lumbar spondylosis with facet arthropathy presents today for CT R knee results. Pain level is provoked as high as 4/10 by twisting or lifting, localized in the R knee, achy in character without radiation. Pt stated she fell on her R knee again this month. Pain is alleviated with injections, medications, topicals, ice, heat, stretching and rest. Interventional pain procedures completed include LESI L4-L5 x2, L5-S1 x 1 Patient is currently on Tylenol, Motrin prn Patient denies any side effects of the medication(s), denies excessive drowsiness or sleepiness, denies suicidal ideation and reports that the current pain medication is helping to control the pain and improve activities of daily living. Patient denies any motor or sensory deficits. Patient denies any fever or night sweats, denies any change in the bowel movements or urination. Physical Examination: -Constitutional: Cooperative. Not in acute distress . - Neurologic: Cranial nerve II to XII intact. No focal neurological de ficits. - Psychatric: Alert & oriented x 3. Matching mood & appropriate affect. Judgment and insight intact. - Musculoskeletal: Cervical spine: Muscle bulk/ tone/ strength in the bilateral upper extremities normal Vertebral body tenderness to palpation over Spurling test positive Distraction test positive Facet loading test positive Thoracic spine Muscle bulk / tone/ strength in the bilateral paraspinal muscles normal Vertebral body tender to palpation over Facet loading test positive Lumbar spine: R medial joint point TTP Motor bulk/ tone/ strength lower extremities , thigh and legs : 5/5 Deep tendon reflexes : Normal Knee Jerk. Normal Ankle Jerk . Vertebral body tenderness to palpation Lumbar Facet Loading Test positive Straight Leg Raise: positive at 30 degrees right side/ left side Gaenslen's Test positive Sacral spine : Severe tenderness over the Sacroiliac joint: right side / left side Range of motion: Flexion of the lumbar spine <60 degrees Range of motion: Extension of the lumbar spine <20 degrees Gaenslen's Test positive Waqas test: positive right side / left side Thigh Thrust Test Sacral Thrust Test Imaging: CT non contrast of the R knee from 12/02/22 reviewed Assessment and plan: Chronic R Knee Pain secondary to DJD Recommendation of R intra articular joint injection #1. May need a series of injections for optimal pain relief. Risks, benefits of procedure discussed and pt verbalized understanding. Protocol for discontinuation of medications enrrique procedure discussed. All patient questions answered I have spent less than 30 minutes on patient care today. Dr Kelley was available by phone for the evaluation of this patient. The time was used to review the medical records including relevant urine studies and Prescription history (MAPs), review of the available imaging, evaluation and examination of the patient, coordination of care with the medical staff and if applicable referring physicians, as well as creation of the medical record PQRS Narrative: Hx Alcohol Use (MH) No Home Medications: Ambulatory Orders Atorvastatin [Lipitor] 80 mg PO DAILY 04/27/21 Candesartan/Hydrochlorothiazid [Candesartan/Hydrochlorothiazid 32-12.5 mg] 1 each PO DAILY 04/27/21 Esomeprazole Magnesium [NexIUM] 40 mg PO DAILY 04/27/21 Ibuprofen [Motrin] 800 mg PO BID PRN 04/27/21 Meloxicam [Mobic] 15 mg PO DAILY 04/27/21 Sertraline [Zoloft] 100 mg PO BID 04/27/21 amLODIPine BESYLATE 10 mg PO DAILY 04/27/21 buPROPion XL [Wellbutrin XL] 300 mg PO DAILY 04/27/21 sitaGLIPtin PHOS/metFORMIN HCL [Janumet 50-500 mg Tablet] 1 each PO BID 04/27/21 Glucosam/Lamberto-Msm1/C/Anup/Bosw [Glucosamine-Chondroitin Tablet] 1 each PO DAILY 09/28/22 Iron(Unknown Dose) 1 tab PO DAILY 09/28/22 Vitamin B-12 (Unknown Dose) 1 tab PO DAILY 09/28/22 Vitamin C (Unknown Dose) 1 tab PO DAILY 09/28/22 Vitamin D (Unknown Dose) 1 tab PO DAILY 09/28/22 Vitamin E (Unknown Dose) 1 tab PO DAILY 09/28/22 Controlled Substance Measures - Controlled Substance Measures Is patient prescribed a controlled substance at discharge?: No
== END ==
LOC: PNWHC3 14:11
PROVIDERS: ATTEND Specialist
DX: G89.29 Other chronic pain (principal); M17.11 Unilateral primary osteoarthritis, right knee; Z91.048 Other nonmedicinal substance allergy status
CPT/HCPCS: 99211

== ENCOUNTER 2023-01-13 11:59 | Day surgery (SDC) | payer MEDICARE ==
[2023-01-12 08:53] VITALS: BMI 31.7
[~2023-01-13 11:59] MED LIST changes: -IOPAMIDOL M200 10 ML VIAL ONE; +LACTATED RINGERS 1,000 ML IV SCH; -methylPREDNISolone ACETATE 40 MG/ML 1 ML VIAL ONE
[2023-01-13 12:39] VITALS: RESP 18; TEMP 97.5
[2023-01-13 12:42] LABS: Glucose,Whole Blood 124 mg/dL (70-110)
[2023-01-13] MEDS ORDERED: methylPREDNISolone ACETATE 40 MG/ML 1 ML VIAL ONE (13:09)
[2023-01-13] MEDS ORDERED: ROPIVACAINE 5MG/ML 20ML VIAL ONE (13:09)
--- NOTE | 2023-01-13 13:37 | P.PCN ---
Date of Procedure: 01/13/23 Description of Procedure: PROCEDURE: right knee joint Intraarticular Injection under ultrasound guidance guidance. PREPROCEDURE DIAGNOSIS: Knee Osteoarthrosis. POSTPROCEDURE DIAGNOSIS: Knee Osteoarthrosis. ANESTHESIA: Local with 1% lidocaine; EBL: none COMPLICATIONS: none Specimens removed: None Ultrasound image: Saved to patient electronic medical records. Indications for Procedure: The patient has been suffering from chronic knee pain, and inadequate pain relief after pharmacologic regimen, and knee joint injection was scheduled for the patient. Procedure and Findings: The patient was seen and examined and written informed consent was obtained after explaining the risks, benefits and alternatives of the procedure to the patient. The patient was placed in the supine position. We will are was placed under the knee The skin preparation was done with ChloraPrep 2 solution, and sterile technique was observed throughout the procedure. Using ultrasound the target point for needle entry on the lateral side identified. 5 ml of 1% Lidocaine was injected with a 25 gauge needle to achieve adequate local anesthesia of the skin and subcutaneous tissue. A 21 gauge 1.5 inch ultrasound needle was introduced through the target point from the lateral side and advanced into the joint cavity under ultrasound guidance. A negative aspiration was confirmed, 5 ml block solution containing 40 MG of Depo-Medrol and 4 ml of 0.5% % preservative- free ropivacaine was injected slowly with ultrasound visualization. The needle was removed and needle puncture site was appropriately cleaned, and covered with a bandage. Disposition : The patient tolerated the procedure very well. No complication. Discharged home in stable condition.
[2023-01-13 14:03] VITALS: BP 134/74; PULSE 74
== END 2023-01-13 14:04 | disposition home or self-care (01) ==
LOC: ORPAIN 11:59
PROVIDERS: ATTEND Pain Medicine Interventional Pain Medicine
DX: M17.11 Unilateral primary osteoarthritis, right knee (principal); I10 Essential (primary) hypertension; E11.9 Type 2 diabetes mellitus without complications; K21.9 Gastro-esophageal reflux disease without esophagitis; Z98.890 Other specified postprocedural states; Z79.899 Other long term (current) drug therapy
CPT/HCPCS: 20611; J1030; J2795; 20610

== ENCOUNTER → 2023-02-16 | Outpatient (CLI) | payer MEDICARE ==
[2023-02-16 12:27] VITALS: BP 145/79; PULSE 98; RESP 16
--- NOTE | 2023-02-16 14:10 | P.PAINPG ---
Objective - Vital Signs Vital signs: Vital Signs Temp Pulse 98 02/16/23 12:15 Resp 16 02/16/23 12:15 BP 145/79 02/16/23 12:15 Pulse Ox 95 02/16/23 12:15 FiO2 PQRS Measure Charge Sheet Mode of Arrival: Ambulatory Comment: A 72 yr old female with a history of severe and chronic low back pain secondary to lumbar degenerative disc diseases and lumbar spondylosis with facet arthropathy presents today for evaluation s/p R intra articular joint injection #1. Pt states she experienced 100% pain relief s/p procedure. Pain level is provoked as high as 1/10 by twisting or lifting, localized in the R knee, achy in character without radiation. Pt stated she fell on her R knee again this month. Pain is alleviated with injections, medications, topicals, ice, heat, stretching and rest. Interventional pain procedures completed include LESI L4-L5 x2, L5-S1 x 1, R knee joint x1 Patient is currently on Tylenol, Motrin prn Patient denies any side effects of the medication(s), denies excessive drowsiness or sleepiness, denies suicidal ideation and reports that the current pain medication is helping to control the pain and improve activities of daily living. Patient denies any motor or sensory deficits. Patient denies any fever or night sweats, denies any change in the bowel movements or urination. Physical Examination: -Constitutional: Cooperative. Not in acute distress . - Neurologic: Cranial nerve II to XII intact. No focal neurological deficits. - Psychatric: Alert & oriented x 3. Matching mood & appropriate affect. Judgment and insight intact. - Musculoskeletal: Cervical spine: Muscle bulk/ tone/ strength in the bilateral upper extremities normal Vertebral body tenderness to palpation over Spurling test positive Distraction test positive Facet loading test positive Thoracic spine Muscle bulk / tone/ strength in the bilateral paraspinal muscles normal Vertebral body tender to palpation over Facet loading test positive Lumbar spine: R medial joint point TTP Motor bulk/ tone/ strength lower extremities , thigh and legs : 5/5 Deep tendon reflexes : Normal Knee Jerk. Normal Ankle Jerk . Vertebral body tenderness to palpation Lumbar Facet Loading Test positive Straight Leg Raise: positive at 30 degrees right side/ left side Gaenslen's Test positive Sacral spine : Severe tenderness over the Sacroiliac joint: right side / left side Range of motion: Flexion of the lumbar spine <60 degrees Range of motion: Extension of the lumbar spine <20 degrees Gaenslen's Test positive Waqas test: positive right side / left side Thigh Thrust Test Sacral Thrust Test Imaging: CT non contrast of the R knee from 12/02/22 reviewed Assessment and plan: Chronic R Knee Pain secondary to DJD Will manage residual pain and may RTC on an as needed basis. All patient questions answered I have spent less than 30 minutes on patient care today. Dr Kelley was available by phone for the evaluation of this patient. The time was used to review the medical records including relevant urine studies and Prescription hi story (MAPs), review of the available imaging, evaluation and examination of the patient, coordination of care with the medical staff and if applicable referring physicians, as well as creation of the medical record PQRS Narrative: Blood Pressure 145/79 Pain Intensity [Right Knee] 0 Scale Used Numeric (1 - 10) Hx Alcohol Use (MH) No Home Medications: Ambulatory Orders Atorvastatin [Lipitor] 80 mg PO DAILY 04/27/21 Candesartan/Hydrochlorothiazid [Candesartan/Hydrochlorothiazid 32-12.5 mg] 1 each PO DAILY 04/27/21 Esomeprazole Magnesium [NexIUM] 40 mg PO DAILY 04/27/21 Ibuprofen [Motrin] 800 mg PO BID PRN 04/27/21 Meloxicam [Mobic] 15 mg PO DAILY 04/27/21 Sertraline [Zoloft] 100 mg PO BID 04/27/21 amLODIPine BESYLATE 10 mg PO DAILY 04/27/21 buPROPion XL [Wellbutrin XL] 300 mg PO DAILY 04/27/21 sitaGLIPtin PHOS/metFORMIN HCL [Janumet 50-500 mg Tablet] 1 each PO BID 04/27/21 Glucosam/Lamberto-Msm1/C/Anup/Bosw [Glucosamine-Chondroitin Tablet] 1 each PO DAILY 09/28/22 Iron(Unknown Dose) 1 tab PO DAILY 09/28/22 Vitamin B-12 (Unknown Dose) 1 tab PO DAILY 09/28/22 Vitamin C (Unknown Dose) 1 tab PO DAILY 09/28/22 Vitamin D (Unknown Dose) 1 tab PO DAILY 09/28/22 Vitamin E (Unknown Dose) 1 tab PO DAILY 09/28/22 Controlled Substance Measures - Controlled Substance Measures Is patient prescribed a controlled substance at discharge?: No
== END ==
LOC: PNWHC3 12:08
PROVIDERS: ATTEND Specialist
DX: M17.11 Unilateral primary osteoarthritis, right knee (principal); Z88.8 Allergy status to other drugs, medicaments and biological substances
CPT/HCPCS: 99211

== ENCOUNTER → 2023-08-15 | Outpatient (CLI) | payer MEDICARE ==
[2023-08-15 14:42] VITALS: BP 133/74; PULSE 85; RESP 16; TEMP 96.4
--- NOTE | 2023-08-15 15:04 | P.PAINPG ---
PQRS Measure Charge Sheet Comment: A 73 yr old female with a history of severe and chronic low back pain secondary to DDD, spondylosis and facet arthropathy without myelopathy presents today for evaluation. Pain level is provoked as high as 8 /10 by twisting or lifting, localized in the lumbar spine, constant, predominantly axial, achy in character w occasional radiation to the L hip. Pain is provoked w over activity. Pain is alleviated with PT x 6 wks in 2021, physician guided stretches daily since 2021, injections, medications, topicals, ice, heat, stretching and rest. Oswestry axial pain score of 29. Interventional pain procedures completed include LESI L4-L5 x2, L5-S1 x 1, R knee joint x1 Patient is currently on Tylenol, Motrin prn Patient denies any side effects of the medication(s), denies excessive drowsiness or sleepiness, denies suicidal ideation and reports that the current pain medication is helping to control the pain and improve activities of daily living. Patient denies any motor or sensory deficits. Patient denies any fever or night sweats, denies any change in the bowel movements or urination. Physical Examination: -Constitutional: Cooperative. Not in acute distress . - Neurologic: Cranial nerve II to XII intact. No focal neurological deficits. - Psychatric: Alert & oriented x 3. Matching mood & appropriate affect. Judgment and insight intact. - Musculoskeletal: Cervical spine: Muscle bulk/ tone/ strength in the bilateral upper extremities normal Vertebral body tenderness to palpation over Spurling test positive Distraction test positive Facet loading test positive Thoracic spine Muscle bulk / tone/ strength in the bilateral paraspinal muscles normal Vertebral body tender to palpation over Facet loading test positive Lumbar spine: R medial joint point TTP Motor bulk/ tone/ strength lower extremities , thigh and legs : 5/5 Deep tendon reflexes : Normal Knee Jerk. Normal Ankle Jerk . Vertebral body tenderness to palpation Benitez test positive L5-S1 Lumbar Facet Loading Test positive Straight Leg Raise: positive at 30 degrees right side/ left side Gaenslen's Test positive Sacral spine : Severe tenderness over the Sacroiliac joint: right side / left side Range of motion: Flexion of the lumbar spine <60 degrees Range of motion: Extension of the lumbar spine <20 degrees Gaenslen's Test positive Waqas test: positive right side / left side Thigh Thrust Test Sacral Thrust Test Imaging: CT non contrast of the R knee from 12/02/22 reviewed MRI non contrast of the lumbar spine from 09/11/20 reviewed Assessment and plan: Chronic R Knee Pain and LBP secondary to R knee DJD, DDD, spondylosis and facet arthropathy without myelopathy Recommendation of lumbar x ray M51.36 May need additional testing if indicated. All patient questions answered I have spent less than 30 minutes on patient care today. Dr Kelley was available by phone for the evaluation of this patient. The time was used to review the medical records including relevant urine studies and Prescription history (MAPs), review of the available imaging, evaluation and examination of the patient, coordination of care with the medical staff and if applicable referring physicians, as well as creation of the medical record PQRS Narrative: Hx Alcohol Use (MH) No Home Medications: Ambulatory Orders Atorvastatin [Lipitor] 80 mg PO DAILY 04/27/21 Candesartan/Hydrochlorothiazid [Candesartan/Hydrochlorothiazid 32-12.5 mg] 1 each PO DAILY 04/27/21 Esomeprazole Magnesium [NexIUM] 40 mg PO DAILY 04/27/21 Ibuprofen [Motrin] 800 mg PO BID PRN 04/27/21 Meloxicam [Mobic] 15 mg PO DAILY 04/27/21 Sertraline [Zoloft] 100 mg PO BID 04/27/21 amLODIPine BESYLATE 10 mg PO DAILY 04/27/21 buPROPion XL [Wellbutrin XL] 300 mg PO DAILY 04/27/21 sitaGLIPtin PHOS/metFORMIN HCL [Janumet 50-500 mg Tablet] 1 each PO BID 04/27/21 Glucosam/Lamberto-Msm1/C/Anup/Bosw [Glucosamine-Chondroitin Tablet] 1 each PO DAILY 09/28/22 Iron(Unknown Dose) 1 tab PO DAILY 09/28/22 Vitamin B-12 (Unknown Dose) 1 tab PO DAILY 09/28/22 Vitamin C (Unknown Dose) 1 tab PO DAILY 09/28/22 Vitamin D (Unknown Dose) 1 tab PO DAILY 09/28/22 Vitamin E (Unknown Dose) 1 tab PO DAILY 09/28/22 Controlled Substance Measures - Controlled Substance Measures Is patient prescribed a controlled substance at discharge?: No
== END ==
LOC: PNWHC3 14:08
PROVIDERS: ATTEND Specialist
DX: M47.27 Other spondylosis with radiculopathy, lumbosacral region (principal); M51.17 Intervertebral disc disorders with radiculopathy, lumbosacral region; M43.16 Spondylolisthesis, lumbar region; M17.11 Unilateral primary osteoarthritis, right knee; Z91.09 Other allergy status, other than to drugs and biological substances
CPT/HCPCS: 99211

== ENCOUNTER → 2023-08-15 | Outpatient (CLI) | payer MEDICARE ==
--- NOTE | 2023-08-15 21:19 | XR ---
EXAMINATION TYPE: XR lumbar spine 2 or 3V DATE OF EXAM: 08/15/2023 COMPARISON: None HISTORY: Chronic low back pain TECHNIQUE: 3 view lumbar spine FINDINGS: There are 5 lumbar-type vertebral bodies. Pedicles are intact. There is a grade 1 spondylol isthesis of L4 anterior on L5. There is loss of disc height L5-S1. Milder loss of disc height is pres ent L4-5 and posteriorly L2-3 L3-4. Mild spondylosis is present. IMPRESSION: 1. Grade 1 spondylolisthesis of L4 anterior to L5. 2. Degenerative disc changes L2-3 through L5-S1, greatest at L5-S1
== END | disposition home or self-care (01) ==
LOC: RADXRMAIN 15:03
PROVIDERS: ATTEND Family Medicine
DX: M51.36 Other intervertebral disc degeneration, lumbar region (principal); M43.16 Spondylolisthesis, lumbar region; M47.816 Spondylosis without myelopathy or radiculopathy, lumbar region; M47.817 Spondylosis without myelopathy or radiculopathy, lumbosacral region; M51.37 Other intervertebral disc degeneration, lumbosacral region
CPT/HCPCS: 72100

== ENCOUNTER → 2023-09-07 | Outpatient (CLI) | payer MEDICARE ==
--- NOTE | 2023-09-07 17:23 | MR ---
EXAMINATION TYPE: MR lumbar spine wo con DATE OF EXAM: 09/07/2023 COMPARISON: Lumbar spine radiograph 08/15/2023, MRI lumbar spine 09/11/2020 HISTORY: Low back pain into buttocks on both sides, difficult to walk, TECHNIQUE: Multiplanar, multisequence images of the lumbar spine were acquired without IV contrast. FINDINGS: The lumbar vertebral bodies do have preserved heights. Similar grade 1 anterolisthesis of L4 on L5 without evidence of pars defects. Multilevel disc desiccation is present. The conus medulla ris and the distal spinal cord do appear unremarkable with regards to their signal intensity and morp hology. T12-L1: No significant disc pathology is identified. The spinal canal and neural foramen are patent. L1-L2: No significant disc pathology is identified. The spinal canal and neural foramen are patent. L2-L3: No significant disc pathology is identified. The spinal canal and neural foramen are patent. L3-L4: No disc herniation or significant central canal stenosis. Left facet arthropathy resulting in mild left neural foraminal stenosis. The right neural foramen is patent. L4-L5: Grade 1 anterolisthesis with uncovering of the disc. Broad-based disc bulge with bilateral fac et arthropathy and ligamentum flavum buckling. Additionally there is a 6 mm synovial cyst emanating f rom the right facet joint extending into the central canal resulting in moderate to severe central ca nal stenosis (series 601, image 8). Moderate left and moderate to severe right neural foraminal steno sis. L5-S1: Broad-based disc bulge without significant central canal stenosis. Bilateral facet arthropath y resulting in moderate bilateral neural foraminal stenosis. Other significant findings: Atrophy of the left iliopsoas muscle compared to the right. IMPRESSION: 1. Moderate to severe spinal canal stenosis at L4-L5 secondary to broad-based disc bulge, ligament f lavum buckling, facet arthropathy, and new right facet 6 mm synovial cyst. Additionally there is mode rate left and [id number] right neural foraminal stenosis at this level. This has progressed f rom prior MRI. 2. Similar grade 1 anterolisthesis of L4 on L5. 3. Multilevel disc degeneration with associated osteoarthritic changes.
== END | disposition home or self-care (01) ==
LOC: RADMRIMAIN 15:44
PROVIDERS: ATTEND Specialist
DX: M51.36 Other intervertebral disc degeneration, lumbar region (principal); M99.73 Connective tissue and disc stenosis of intervertebral foramina of lumbar region; M43.16 Spondylolisthesis, lumbar region
CPT/HCPCS: 72148

== ENCOUNTER → 2023-09-12 | Outpatient (CLI) | payer MEDICARE ==
[2023-09-12 15:11] VITALS: BP 136/64; PULSE 69; RESP 16; TEMP 97.7
--- NOTE | 2023-09-12 15:12 | P.PAINPG ---
PQRS Measure Charge Sheet Comment: A 73 yr old female with a history of severe and chronic low back pain secondary to DDD, spondylosis and facet arthropathy without myelopathy presents today for evaluation. Pain level is provoked as high as 8 /10 by twisting or lifting, localized in the lumbar spine, constant, predominantly axial, achy in character w occasional radiation to the L hip. Pain is provoked w over activity. Pain is alleviated with PT x 6 wks in 2021, physician guided stretches daily since 2021, injections, medications, topicals, ice, heat, stretching and rest. Oswestry axial pain score of 29. Interventional pain procedures completed include LESI L4-L5 x2, L5-S1 x 1, R knee joint x1 Patient is currently on Tylenol, Motrin prn Patient denies any side effects of the medication(s), denies excessive drowsiness or sleepiness, denies suicidal ideation and reports that the current pain medication is helping to control the pain and improve activities of daily living. Patient denies any motor or sensory deficits. Patient denies any fever or night sweats, denies any change in the bowel movements or urination. Physical Examination: -Constitutional: Cooperative. Not in acute distress . - Neurologic: Cranial nerve II to XII intact. No focal neurological deficits. - Psychatric: Alert & oriented x 3. Matching mood & appropriate affect. Judgment and insight intact. - Musculoskeletal: Cervical spine: Muscle bulk/ tone/ strength in the bilateral upper extremities normal Vertebral body tenderness to palpation over Spurling test positive Distraction test positive Facet loading test positive Thoracic spine Muscle bulk / tone/ strength in the bilateral paraspinal muscles normal Vertebral body tender to palpation over Facet loading test positive Lumbar spine: R medial joint point TTP Motor bulk/ tone/ strength lower extremities , thigh and legs : 5/5 Deep tendon reflexes : Normal Knee Jerk. Normal Ankle Jerk . Vertebral body tenderness to palpation L5 Benitez test positive L5-S1 Lumbar Facet Loading Test positive Straight Leg Raise: positive at 30 degrees right side/ left side Gaenslen's Test positive Sacral spine : Severe tenderness over the Sacroiliac joint: right side / left side Range of motion: Flexion of the lumbar spine <60 degrees Range of motion: Extension of the lumbar spine <20 degrees Gaenslen's Test positive Waqas test: positive right side / left side Thigh Thrust Test Sacral Thrust Test Imaging: CT non contrast of the R knee from 12/02/22 reviewed MRI non contrast of the lumbar spine from 09/07/23 reviewed Assessment and plan: Chronic R Knee Pain and LBP secondary to R knee DJD, L4-L5 severe spinal stenosis, DDD, spondylosis and facet arthropathy without myelopathy Recommendation of [place] L5-S1 #1. May need a series of injections for optimal pain relief. Risks, benefits of procedure discussed and pt verbalized understanding. Protocol for discontinuation/ continuation of medications enrrique procedure discussed. May need additional testing if indicated. All patient questions answered I have spent less than 30 minutes on patient care today. Dr Kelley was available by phone for the evaluation of this patient. The time was used to review the medical records including relevant urine studies and Prescription history (MAPs), review of the available imaging, evaluation and examination of the patient, coordination of care with the medical staff and if applicable referring physicians, as well as creation of the medical record PQRS Narrative: Hx Alcohol Use (MH) No Home Medications: Ambulatory Orders Atorvastatin [Lipitor] 80 mg PO DAILY 04/27/21 Candesartan/Hydrochlorothiazid [Candesartan/Hydrochlorothiazid 32-12.5 mg] 1 each PO DAILY 04/27/21 Esomeprazole Magnesium [NexIUM] 40 mg PO DAILY 04/27/21 Ibuprofen [Motrin] 800 mg PO BID PRN 04/27/21 Meloxicam [Mobic] 15 mg PO DAILY 04/27/21 Sertraline [Zoloft] 100 mg PO BID 04/27/21 amLODIPine BESYLATE 10 mg PO DAILY 04/27/21 buPROPion XL [Wellbutrin XL] 300 mg PO DAILY 04/27/21 sitaGLIPtin PHOS/metFORMIN HCL [Janumet 50-500 mg Tablet] 1 each PO BID 04/27/21 Glucosam/Lamberto-Msm1/C/Anup/Bosw [Glucosamine-Chondroitin Tablet] 1 each PO DAILY 09/28/22 Iron(Unknown Dose) 1 tab PO DAILY 09/28/22 Vitamin B-12 (Unknown Dose) 1 tab PO DAILY 09/28/22 Vitamin C (Unknown Dose) 1 tab PO DAILY 09/28/22 Vitamin D (Unknown Dose) 1 tab PO DAILY 09/28/22 Vitamin E (Unknown Dose) 1 tab PO DAILY 09/28/22 Controlled Substance Measures - Controlled Substance Measures Is patient prescribed a controlled substance at discharge?: No
== END ==
LOC: PNWHC3 14:00
PROVIDERS: ATTEND Specialist
DX: M51.36 Other intervertebral disc degeneration, lumbar region (principal); M17.11 Unilateral primary osteoarthritis, right knee; M47.816 Spondylosis without myelopathy or radiculopathy, lumbar region; M48.061 Spinal stenosis, lumbar region without neurogenic claudication; Z91.09 Other allergy status, other than to drugs and biological substances
CPT/HCPCS: 99211

== ENCOUNTER → 2023-09-30 | Day surgery (SDC) | payer MEDICARE ==
[~2023-09-30] MED LIST changes: +IOPAMIDOL M200 10 ML VIAL ONE; +methylPREDNISolone ACETATE 40 MG/ML 1 ML VIAL ONE
[2023-09-30 09:49] VITALS: TEMP 98
[2023-09-30 09:51] LABS: Glucose,Whole Blood 130 mg/dL (70-110)
--- NOTE | 2023-09-30 10:06 | P.PCN ---
Date of Procedure: 09/30/23 Procedure(s) Performed: PREOPERATIVE DIAGNOSIS: 1- Lumbar Degenerative Disc Diseases 2-Lumbar spondylosis with Facet arthropathy without myelopathy. POSTOPERATIVE DIAGNOSIS: 1-lumbar degenerative disc disease. 2-lumbar spondylosis with facet arthropathy without myelopathy. PROCEDURE 1. Lumbar epidural steroid injection under fluoroscopic guidance at the L5-S1 level. (Fluoroscopy imaging was available in radiology department) 2. Lumbar epidurogram. ANESTHESIA: Lidocaine 1% 3 and then only. EBL: Minimal PROCEDURE INDICATION: The patient with low back pain and radiculitis symptoms unresponsive to conservative treatment. Fluoroscopy was used to optimize visualization of the needle placement and to maximize safety. PROCEDURE DESCRIPTION / TECHNIQUE: The patient was seen and identified in the preoperative area. Risks, benefits, complications including but not limited to infections ,bleeding ,allergic reaction to the medications ,nerve damage and not complete pain releife , and alternatives were discussed with the patient. The patient agreed to proceed with the procedure and signed the consent, and vital signs were stable. Patient was taken to the OR and time out was completed. The patient was placed in the prone position on procedure table and a pillow was placed under the abdomen to reduce lumbar lordosis. The lumbosacral area was prepped and draped in the usual sterile fashion.ere closely monitored during the procedure. Vital signs was monitered during the entire procedure. Using anterior-posterior fluoroscopy, the L5-S1 interlaminar space was identified and the skin over this site was marked and then infiltrated with 1% lidocaine subcutaneously. Subsequently, a 20-gauge Tuohy epidural needle was inserted and advanced toward the epidural space using the ``Loss of resistance technique and guided by AP and lateral fluoroscopy. The correct needle position in the epidural space was verified with the injection of 2 mL of the water soluble contrast dye Isovue 200 contrast and observing an excellent epidurogram with the epidural spread of the dye, after negative aspiration for blood and CSF and in the absence of paresthesias. Again after negative aspiration, a 6 ml mixture containing 40 mg of Depo-medrol ( Preservetive Free ), and 2 ml of preservative free Normal Saline, and 2 ml of preservative free lidocaine 1% solution was injected and a washout of epidurogram was seen. Needle was withdrawn intact, skin was cleansed, and bandages were applied. COMPLICATIONS: None DISPOSITION / PLANS: The patient was placed in a supine position and transferred to the recovery area in a stable condition for observation. There was no evidence of lower extremity motor or sensory deficit after the procedure. Patient was discharged from the recovery room after meeting discharge criteria. Home discharge instructions were given to the patient by the staff. The patient was reexamined prior to discharge. The patient will schedule a follow up in the clinic in 2-4 weeks.
[2023-09-30 10:11] VITALS: BP 116/71; PULSE 74; RESP 16
--- NOTE | 2023-09-30 10:15 | FL ---
Fluoroscopy History: MELODY OLIVER with Carroll Bourne. 1 image saved. 1.5 sec fluoro time. .[id number] DAP
== END ==
LOC: ORPAIN 09:17
PROVIDERS: ATTEND Specialist
DX: M47.26 Other spondylosis with radiculopathy, lumbar region (principal); M51.16 Intervertebral disc disorders with radiculopathy, lumbar region; E11.9 Type 2 diabetes mellitus without complications; Z91.048 Other nonmedicinal substance allergy status; Z79.1 Long term (current) use of non-steroidal anti-inflammatories (NSAID)
CPT/HCPCS: 62323; Q9966; J1010

== ENCOUNTER → 2023-10-20 | Outpatient (CLI) | payer MEDICARE | LOC: PNWHC3 12:15 | PROVIDERS: ATTEND Anesthesiology | DX: M54.16 Radiculopathy, lumbar region | CPT/HCPCS: 99211 ==